=== PATIENT | female | born 1935 | race Caucasian/White ===

== ENCOUNTER → 2021-03-09 | Outpatient (CLI) | payer MEDICARE, OTHER ==
[~2021-03-09] MED LIST: BLOOD PRESSURE MED; CIPR500 PO; GLUCHON; LISHYD1012; NAPR220
== END ==
LOC: LAB SHORT 14:11 → LAB 14:11
DX: D48.5 Neoplasm of uncertain behavior of skin (principal)
CPT/HCPCS: 88341; 88342

== ENCOUNTER → 2021-07-12 | Outpatient (CLI) | payer MEDICARE, OTHER ==
[2021-07-12 14:56] LABS: BASOPHILS ABSOLUTE AUTO 0.06 K/mm3 (0.00-0.23); BASOPHILS PERCENT AUTO 1 % (0-2); EOSINOPHILS ABSOLUTE AUTO 0.21 K/mm3 (0.00-0.68); EOSINOPHILS PERCENT AUTO 4 % (0-6); Hematocrit 37.3 % (33.0-51.0); Hemoglobin 12.1 g/dL (11.5-16.0); IMMATURE GRAN ABSOLUTE AUTO 0.01 K/mm3 (0.00-0.10); IMMATURE GRAN PERCENT AUTO 0 % (0-1); LYMPHOCYTES ABSOLUTE AUTO 1.29 K/mm3 (0.84-5.20); LYMPHOCYTES PERCENT AUTO 26 % (21-46); MONOCYTES ABSOLUTE AUTO 0.47 K/mm3 (0.16-1.47); MONOCYTES PERCENT AUTO 10 % (4-13); Mean Corpuscular HGB 31.3 pg (26.0-34.0); Mean Corpuscular HGB Conc 32.4 g/dL (31.5-36.5); Mean Corpuscular Volume 97 fL (80-100); Mean Platelet Volume 10.5 fL (9.1-12.4); NEUTROPHILS PERCENT AUTO 59 % (41-73); Platelet Count 179 K/mm3 (150-400); RDW Coefficient Variation 12.8 % (11.7-14.2); RDW Standard Deviation 45.7 fL (35.1-46.3); Red Blood Cell Count 3.86 M/mm3 (3.80-5.20); White Blood Cell Count 4.94 K/mm3 (4.00-11.30)
[2021-07-12 15:50] LABS: Alanine Aminotransfer (ALT/SGP 24 U/L (12-78); Albumin, Blood 3.7 g/dL (3.4-5.0); Albumin/Globulin Ratio 1.2 (0.8-1.8); Alk Phos 81 U/L (50-136); Anion Gap 5 mmol/L (6-16); Aspartate Aminotrans (AST/SGOT 22 U/L (12-37); Bilirubin, Direct <0.1 mg/dL (0.0-0.3); Bilirubin, Indirect Unable to Calculate mg/dL (0.1-0.7); Bilirubin, Total 0.5 mg/dL (0.1-1.0); Blood Urea Nitrogen 40 mg/dL (8-24); Bun/Creatinine Ratio 21.9 (12.0-20.0); CO2, Blood 24 mmol/L (21-32); Chloride, Blood 113 mmol/L (98-108); Creatinine, Blood 1.83 mg/dL (0.40-1.00); Glomerular Filtration Rate 26 (60-); Glucose, Blood 98 mg/dL (70-99); Potassium, Blood 4.8 mmol/L (3.5-5.5); Sodium, Blood 142 mmol/L (136-145); Total Protein, Blood 6.7 g/dL (6.4-8.2)
== END | disposition home or self-care (01) ==
LOC: LAB SHORT 14:16 → LAB 14:16
PROVIDERS: Hospitalist
DX: E55.9 Vitamin D deficiency, unspecified (principal); I12.9 Hypertensive chronic kidney disease with stage 1 through stage 4 chronic kidney disease, or unspecified chronic kidney disease; N18.4 Chronic kidney disease, stage 4 (severe)
CPT/HCPCS: 80053; 82248; 82306; 84100; 84443; 85025

== ENCOUNTER 2022-09-05 11:50 | Day surgery (SDC) | payer MEDICARE, OTHER ==
[~2022-09-05] VITALS: Ht 157.5 cm; Wt 79.6 kg
[2022-09-05] MEDS ORDERED: Amlodipine Bes2.5 MG PO (12:24)
[2022-09-05] MEDS ORDERED: Vitamin D1000 UNI1 PO (12:26)
[2022-09-05] MEDS ORDERED: FERSU300 PO (12:26)
== END 2022-09-05 14:10 | disposition home or self-care (01) ==
LOC: ORSCSDS 11:50
PROVIDERS: Orthopaedic Surgery
PROC: 01N50ZZ Release Median Nerve, Open Approach (ICD-10-PCS; principal; 2022-09-05 13:30)
DX: G56.01 Carpal tunnel syndrome, right upper limb (principal); I10 Essential (primary) hypertension; J44.9 Chronic obstructive pulmonary disease, unspecified; Z79.899 Other long term (current) drug therapy
CPT/HCPCS: J0690; J2250; J3010

== ENCOUNTER 2024-01-10 06:17 | Day surgery (SDC) | payer MEDICARE, OTHER ==
[~2024-01-10] VITALS: Ht 160 cm; Wt 79.6 kg
[~2024-01-10 06:17] MED LIST changes: +Amlodipine Bes2.5 MG PO; +Balanced Salt Epinephrine Irrigation Solution 500 mL IR SCH; +FERSU300 PO; +Lidocaine HCl/Pf 1% 5 ML VIAL XX SCH; +Moxifloxacin HCL 0.5 MG/0.1 ML 0.4MLSYR RIGHTEYE SCH; +NS 500 ML IV ONE; +PHENYLEPHRINE\\TROPICAMIDE\\TETRACAINE OPHTHALMIC DILATING SOLN RIGHTEYE PRN; +Povidone-Iodine 450 DROP/30 ML Solution ONE; +Povidone-Iodine 450 DROP/30 ML Solution RIGHTEYE SCH; +Vitamin D1000 UNI1 PO
[2024-01-10] MEDS ORDERED: NS 500 ML IV ONE ×2 (06:38)
[2024-01-10] MEDS ORDERED: Lidocaine HCl/Pf 1% 5 ML VIAL ONE (07:02)
[2024-01-10] MEDS ORDERED: Midazolam HCl 1MG / ML 2ML Vial ONE (07:13)
[2024-01-10] MEDS ORDERED: FentaNYL Citrate 50 MCG/ML 2 ML Injection ONE (07:28)
[2024-01-10] MEDS ORDERED: Tetracaine HCl 0.5% Opth Soln 15 ml RIGHTEYE ONE (07:28)
[2024-01-10] MEDS ORDERED: Glycopyrrolate 0.2 MG/ML 5ML VIAL ONE (07:42)
[2024-01-10 08:01] VITALS: BP 133/74
--- NOTE | 2024-01-10 08:08 | NUR ---
01/10/24 0808 TINY AYERS LARGE HEMATOMA ON TOP OF LEFT HAND FROM ATTEMPTED IV START IN PREOP . BRUISING R ELBOW, CAME IN WITH THIS BRUISE.
[2024-01-15] MEDS ORDERED: Prinivil10 MG PO (08:40)
[2024-01-15] MEDS ORDERED: HYDROCHLOROTH12.5 MG PO (08:40)
== END 2024-01-10 08:22 | disposition home or self-care (01) ==
LOC: ORSCSDS 06:17
PROVIDERS: Student in an Organized Health Care Education/Training Program
PROC: 08RJ3JZ Replacement of Right Lens with Synthetic Substitute, Percutaneous Approach (ICD-10-PCS; principal; 2024-01-10 07:30)
DX: H25.13 Age-related nuclear cataract, bilateral (principal); I12.9 Hypertensive chronic kidney disease with stage 1 through stage 4 chronic kidney disease, or unspecified chronic kidney disease; N18.9 Chronic kidney disease, unspecified; Z79.899 Other long term (current) drug therapy
CPT/HCPCS: J2001; J2250; J3010; J7040; V2632

== ENCOUNTER 2024-01-24 06:54 | Day surgery (SDC) | payer MEDICARE, OTHER ==
[~2024-01-24] VITALS: Ht 157.5 cm; Wt 78.8 kg
[2024-01-24 08:26] VITALS: BP 139/75
== END 2024-01-24 08:40 | disposition home or self-care (01) ==
LOC: ORSCSDS 06:54
PROC: 08RK3JZ Replacement of Left Lens with Synthetic Substitute, Percutaneous Approach (ICD-10-PCS; principal; 2024-01-24)
DX: H25.812 Combined forms of age-related cataract, left eye (principal); Z96.1 Presence of intraocular lens; J44.9 Chronic obstructive pulmonary disease, unspecified; I12.9 Hypertensive chronic kidney disease with stage 1 through stage 4 chronic kidney disease, or unspecified chronic kidney disease; N18.9 Chronic kidney disease, unspecified; Z79.899 Other long term (current) drug therapy

== ENCOUNTER → 2025-09-08 | Outpatient (CLI) | payer MEDICARE, OTHER ==
[~2025-09-08] MED LIST changes: +ALBUTEROL 0.083%; -Balanced Salt Epinephrine Irrigation Solution 500 mL IR SCH; +HYDROCHLOROTH12.5 MG PO; -Lidocaine HCl/Pf 1% 5 ML VIAL XX SCH; -Moxifloxacin HCL 0.5 MG/0.1 ML 0.4MLSYR RIGHTEYE SCH; -NS 500 ML IV ONE; -PHENYLEPHRINE\\TROPICAMIDE\\TETRACAINE OPHTHALMIC DILATING SOLN RIGHTEYE PRN; -Povidone-Iodine 450 DROP/30 ML Solution ONE; -Povidone-Iodine 450 DROP/30 ML Solution RIGHTEYE SCH; +Prinivil10 MG PO
== END ==
LOC: LAB 17:30 → LAB SHORT 17:30
DX: L65.9 Nonscarring hair loss, unspecified (principal)
CPT/HCPCS: 84443